=== PATIENT | male | born 1995 | race Caucasian/White ===

== ENCOUNTER 2020-09-05 11:13 | Emergency (ER) | payer OTHER ==
[~2020-09-05] VITALS: Ht 190.5 cm; Wt 79.0 kg
[2020-09-05 12:43] VITALS: BP 128/76
== END 2020-09-05 12:57 | disposition home or self-care (01) | DRG 605 ==
LOC: ED 11:13
DX: S00.01XA Abrasion of scalp, initial encounter (principal); S00.03XA Contusion of scalp, initial encounter; W20.8XXA Other cause of strike by thrown, projected or falling object, initial encounter; Y93.89 Activity, other specified; Y92.89 Other specified places as the place of occurrence of the external cause; Y99.0 Civilian activity done for income or pay